=== PATIENT | female | born 1975 | race Caucasian/White ===

== ENCOUNTER → 2020-01-07 | Outpatient (CLI) | payer BC ==
[~2020-01-07] MED LIST: ALPR.25 PO; ATEN25 PO; BISA5EC PO; BUDE32NIS; CETI5; CETI5 PO; CRUTCH4 USE; DIPH50 PO; ESCI10; HYDHCL25; Hair, Skin & N1 EACH PO; MECL25 PO; METF500 PO; METO50ER PO; MILK THISTLE; NAPR500 PO; OMEP20ER PO; POLY17UD PO; PRED1; PRED20 PO; PROG100 PO; PROGESTERONE100 MG; PROP20 PO; PSEU30; RANI150; [UNRECOGNIZED DRUG - OTHER] TOP
[2020-01-12 14:08] LABS: HPV 16 Negative (Negative); HPV 18 Negative (Negative); HPV OTHER HR TYPES Negative (Negative)
== END | disposition home or self-care (01) ==
LOC: LAB 16:41 → LAB SHORT 16:41
PROVIDERS: Obstetrics & Gynecology
DX: Z01.419 Encounter for gynecological examination (general) (routine) without abnormal findings (principal)
CPT/HCPCS: 87624; 88142

== ENCOUNTER → 2022-12-21 | Outpatient (CLI) | payer BC ==
[2022-12-26 16:10] LABS: CHLAMYDIA TRACHOMATIS, NAA Negative (Negative); HPV 16 Negative (Negative); HPV 18 Negative (Negative); HPV OTHER HR TYPES Negative (Negative)
== END ==
LOC: LAB SHORT 18:31 → LAB 18:31
PROVIDERS: Obstetrics & Gynecology
DX: Z01.419 Encounter for gynecological examination (general) (routine) without abnormal findings (principal); Z11.3 Encounter for screening for infections with a predominantly sexual mode of transmission
CPT/HCPCS: 87491; 87591; 87624; G0145

== ENCOUNTER 2023-02-25 13:03 | Emergency (ER) | payer BC ==
[~2023-02-25] VITALS: Ht 167.6 cm; Wt 140.6 kg
[2023-02-25 14:07] VITALS: BP 157/103
[2023-02-25] MEDS ORDERED: ETOD500 PO (15:24)
== END 2023-02-25 15:27 | disposition home or self-care (01) ==
LOC: ER 13:03
DX: R51.9 Headache, unspecified (principal); I10 Essential (primary) hypertension; R73.03 Prediabetes; Z88.0 Allergy status to penicillin; Z88.2 Allergy status to sulfonamides; Z79.899 Other long term (current) drug therapy
CPT/HCPCS: 70450; 71045; 93005; 93010; 99284-25